=== PATIENT | male | born 1960 | race Hispanic/Latino ===

== ENCOUNTER → 2018-08-02 | Outpatient (CLI) | payer BC ==
[~2018-08-02] MED LIST: AMIO200T5 PO; FURO20TA4 PO; METO75TA PO; ROSU20TA30 PO; WARF6TAB49 PO
== END | disposition home or self-care (01) ==
LOC: RAH 13:27
PROVIDERS: ATTEND Internal Medicine Cardiovascular Disease
DX: K81.9 Cholecystitis, unspecified (principal); R16.0 Hepatomegaly, not elsewhere classified
CPT/HCPCS: 76705

== ENCOUNTER → 2019-02-15 | Outpatient (CLI) | payer BC ==
[~2019-02-15] MED LIST changes: +APIX5TAB PO; +FE F1CAP8 PO; -FURO20TA4 PO; +FURO40TA7 PO; +METO25 PO; -METO75TA PO; +TRAM50TA4 PO; -WARF6TAB49 PO
[2019-02-15 12:48] LABS: CREATININE 1.6 mg/dL (0.5-1.5)
== END | disposition home or self-care (01) ==
LOC: LAB 11:54
PROVIDERS: ATTEND Internal Medicine
DX: I72.4 Aneurysm of artery of lower extremity (principal)
CPT/HCPCS: 36415; 82565; 84520

== ENCOUNTER → 2019-02-22 | Outpatient (CLI) | payer BC ==
[2019-02-22 11:23] LABS: CREATININE 1.6 mg/dL (0.5-1.5)
== END | disposition home or self-care (01) ==
LOC: LAB 10:45
PROVIDERS: ATTEND Thoracic Surgery (Cardiothoracic Vascular Surgery)
DX: I72.4 Aneurysm of artery of lower extremity (principal)
CPT/HCPCS: 36415; 82565; 84520

== ENCOUNTER → 2019-03-08 | Outpatient (CLI) | payer BC ==
[~2019-03-08] MED LIST changes: -ROSU20TA30 PO; +ROSU20TA31 PO
[2019-03-08 16:51] LABS: CREATININE 1.9 mg/dL (0.5-1.5)
== END | disposition home or self-care (01) ==
LOC: LAB 15:50
PROVIDERS: ATTEND Thoracic Surgery (Cardiothoracic Vascular Surgery)
DX: Z01.812 Encounter for preprocedural laboratory examination (principal); I72.4 Aneurysm of artery of lower extremity
CPT/HCPCS: 36415; 82565; 84520

== ENCOUNTER → 2019-04-03 | Outpatient (CLI) | payer BC ==
[2019-04-03 15:48] LABS: CREATININE 1.7 mg/dL (0.5-1.5)
== END | disposition home or self-care (01) ==
LOC: LAB 14:45
PROVIDERS: ATTEND Thoracic Surgery (Cardiothoracic Vascular Surgery)
DX: I72.4 Aneurysm of artery of lower extremity (principal)
CPT/HCPCS: 36415; 82565; 84520

== ENCOUNTER 2019-04-17 08:50 | Day surgery (SDC) | payer BC ==
[2019-04-17 09:30] VITALS: BP 140/81
[2019-04-17] MEDS ORDERED: IOHEXOL 350 MG/ML 100ML INFUS..BTL IV ONE (09:56)
[2019-04-17] MEDS ORDERED: IOHEXOL-350 50ML VIAL IV ONE (09:56)
[2019-04-17 12:00] VITALS: BP 130/72
[2019-04-17 16:00] VITALS: BP 132/80
[2019-05-16] MEDS ORDERED: CYANOCOBALAMIN PO (17:51)
[2019-05-16] MEDS ORDERED: METO25TA6 PO (17:51)
[2019-05-16] MEDS ORDERED: [UNRECOGNIZED DRUG - OTHER] PO (17:51)
[2019-05-16] MEDS ORDERED: PRED20TA3 PO (17:51)
[2019-05-16] MEDS ORDERED: ASPI-1181 PO (17:51)
[2019-05-16] MEDS ORDERED: FURO20TA4 PO (17:51)
== END 2019-04-17 16:52 | disposition home or self-care (01) ==
LOC: RAH 08:50
PROVIDERS: ATTEND Thoracic Surgery (Cardiothoracic Vascular Surgery)
DX: I72.4 Aneurysm of artery of lower extremity (principal); I72.8 Aneurysm of other specified arteries
CPT/HCPCS: 73706; A4606; Q9967 ×2; 96360; 96361

== ENCOUNTER → 2019-05-07 | Day surgery (SDC) | payer BC ==
[~2019-05-07] MED LIST changes: +ASPI-1181 PO; +CYANOCOBALAMIN PO; +FURO20TA4 PO; +METO25TA6 PO; +PRED20TA3 PO; +SODIUM CHLORIDE 0.9% 1000ML 1,000 ML IV ONE; +[UNRECOGNIZED DRUG - OTHER] PO
[2019-05-07 07:44] LABS: BASOPHILS % (AUTO) 0.9 % (0.0-5.0); EOSINOPHILS % (AUTO) 1.9 % (0.0-8.0); HEMATOCRIT 26.3 % (42-54); LYMPHOCYTES % (AUTO) 12.9 % (21.0-51.0); MEAN CORPUSCULAR HEMOGLOBIN 33.8 pg (27.0-33.0); MEAN CORPUSCULAR HGB CONC 31.6 g/dL (32.0-36.0); MONOCYTES % (AUTO) 9.1 % (3.0-13.0); NEUTROPHILS % (AUTO) 75.2 % (40.0-77.0); NUCLEATED RED BLOOD CELLS 0.2 % (0.0-0.19); PLATELET COUNT (AUTO) 295 K/uL (130-400); RED BLOOD CELL COUNT(AUTO) 2.46 MIL/uL (4.50-6.20); RED CELL DISTRIBUTION WIDTH 25.2 % (11.0-15.5); WHITE BLOOD COUNT (AUTO) 9.5 K/uL (4.8-10.8)
[2019-05-07 07:59] LABS: ALBUMIN 4.1 g/dL (3.5-5.0); BILIRUBIN,TOTAL 2.4 mg/dL (0.2-1.0); CREATININE 1.4 mg/dL (0.5-1.5); POTASSIUM 4.3 mmol/L (3.5-5.1)
[2019-05-07 08:03] LABS: INR 0.92 (0.85-1.15); PROTHROMBIN TIME 9.7 SEC (9.6-11.6)
[2019-05-07 08:10] LABS: PLATELET MORPHOLOGY GIANT PLTS PRESENT
[2019-05-07 08:40] VITALS: BP 154/78
--- NOTE | 2019-05-07 08:50 | NUR ---
ASSESSMENT PT HERE FOR PROCEDURE. HAS FIRMNESS TO LEFT SIDE OF GROIN. DENIES ANY PAIN.
--- NOTE | 2019-05-07 09:14 | NUR ---
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 LAMA PRIOR TO PROCEDURE.
--- NOTE | 2019-05-07 09:40 | NUR ---
PROCEDURE PATIENT SCHEDULED FOR LT GROIN PSEUDOANEURYSM REPAIR WITH THROMBIN INJECTION. U/S LT GROIN TAKEN AND REVIEWED BY DR Maryjo LAMA. PROCEDURE VERY HIGH RISK OF CLOTTING LT LOWER EXTREMITY ARTERIAL SYSTEM. PROCEDURE CANCELLED AND Maxx PORRAS RN NOTIFIED OF PROCEDURE OUTCOME. DR Maryjo LAMA EXPLAINED OUTCOME TO PATIENT AND PATIENT VERBALIZED UNDERSTANDING.
--- NOTE | 2019-05-07 09:45 | NUR ---
PT DISCHARGED. INSTRUCTED TO CALL DR. HERNANDEZ TO FOLLOW UP. PT VERBALIZED UNDERSTANDING. DENIES ANY PAIN, DISCOMFORT.
== END ==
LOC: RAH 07:13 → EDSTATUS 08:00
PROVIDERS: ATTEND Thoracic Surgery (Cardiothoracic Vascular Surgery)
DX: I72.4 Aneurysm of artery of lower extremity (principal); I25.10 Atherosclerotic heart disease of native coronary artery without angina pectoris; I50.32 Chronic diastolic (congestive) heart failure; I48.91 Unspecified atrial fibrillation; Z79.899 Other long term (current) drug therapy; Z95.1 Presence of aortocoronary bypass graft; Z79.82 Long term (current) use of aspirin; Z98.890 Other specified postprocedural states
CPT/HCPCS: 36415; 76882; 80053; 85025; 85610; 85730; A4215; A4216; A4221; A4222; A4223 ×3; A4606; J7030

== ENCOUNTER 2019-05-17 09:51 | Inpatient (IN) | payer BC | END 2019-05-18 15:25 | disposition home or self-care (01) | LOC: DAHIP 09:51 → 4CH 15:08 | PROC: 04QL0ZZ Repair Left Femoral Artery, Open Approach (ICD-10-PCS; principal; 2019-05-17 11:53) | DX: R19.09 Other intra-abdominal and pelvic swelling, mass and lump (principal) ==

== ENCOUNTER → 2019-06-07 | Outpatient (CLI) | payer BC ==
[~2019-06-07] MED LIST changes: -AMIO200T5 PO; -APIX5TAB PO; -FE F1CAP8 PO; -FURO40TA7 PO; -METO25 PO; -ROSU20TA31 PO; -SODIUM CHLORIDE 0.9% 1000ML 1,000 ML IV ONE; -TRAM50TA4 PO
== END | disposition home or self-care (01) ==
LOC: RAH 09:52
PROVIDERS: ATTEND Family Medicine
DX: M79.89 Other specified soft tissue disorders (principal); M79.605 Pain in left leg
CPT/HCPCS: 93971

== ENCOUNTER → 2024-04-16 | Outpatient (CLI) | payer OTHER ==
[~2024-04-16] MED LIST changes: -ASPI-1181 PO; +ASPI-1443 PO
[2024-04-16 12:08] LABS: BASOPHILS # (AUTO) 0.07 K/uL (0.00-0.20); BASOPHILS % (AUTO) 0.8 % (0.0-5.0); EOSINOPHILS # (AUTO) 0.25 K/uL (0.00-0.70); HEMATOCRIT 52.4 % (42-54); IMMATURE GRANULOCYTE ABSOLUTE 0.03 K/uL (0-1); LYMPHOCYTES # (AUTO) 2.1 K/uL (1.0-4.8); LYMPHOCYTES % (AUTO) 25.8 % (21.0-51.0); MEAN CORPUSCULAR HEMOGLOBIN 30.8 pg (27.0-33.0); MEAN CORPUSCULAR HGB CONC 32.1 g/dL (32.0-36.0); MEAN CORPUSCULAR VOLUME 96.1 fL (79-99); MONOCYTES # (AUTO) 1.1 K/uL (0.1-1.0); MONOCYTES % (AUTO) 13.2 % (3.0-13.0); NEUTROPHILS # (AUTO) 4.7 K/uL (1.8-7.7); NEUTROPHILS % (AUTO) 56.8 % (40.0-77.0); PLATELET COUNT (AUTO) 189 K/uL (130-400); RED BLOOD CELL COUNT(AUTO) 5.45 MIL/uL (4.50-6.20); RED CELL DISTRIBUTION WIDTH 15.1 % (11.0-15.5); WHITE BLOOD COUNT (AUTO) 8.3 K/uL (4.8-10.8)
== END | disposition home or self-care (01) ==
LOC: LAB 08:20
PROVIDERS: ATTEND Internal Medicine Cardiovascular Disease
DX: Z79.01 Long term (current) use of anticoagulants (principal)
CPT/HCPCS: 36415; 85025